=== PATIENT | male | born 1975 | race Caucasian/White ===

== ENCOUNTER → 2018-03-12 06:49 | Outpatient (CLI) | payer OTHER, SELFPAY ==
--- NOTE | 2018-03-12 | DI.MRI.S_ITS ---
PROCEDURE: MR WRIST RT WO/W CON INDICATIONS: SPRAIN OF CARPAL JOINT OF RIGHT WRIST TECHNIQUE: Noncontrast coronal proton density fast spin echo and T2 fast spin echo with fat saturation; coronal 3-D gradient echo, axial T1 spin echo and T2 fast spin echo with fat saturation, axial T1 spin echo with fat saturation, sagittal T1 spin echo through the wrist. Post-contrast axial, coronal, and sagittal T1 spin echo with fat saturation through the wrist. COMPARISON: None. FINDINGS: Image quality: Excellent. Bones and cartilage: No suspicious osseous enhancement. The carpal bones are normally aligned. No bone marrow contusions or fractures. No evidence for avascular necrosis. Overlying cartilage surfaces appear preserved. Carpal ligaments: The scapholunate and lunotriquetral ligaments appear thickened with intermediate signal consistent with sequelae of a moderate sprain or chronic degeneration. The lunotriquetral ligament appears intact. In the absence of intra-articular contrast, the extrinsic carpal ligaments are not well identified. On sagittal images, the pisohamate ligament appears intact. Triangular fibrocartilage complex: The triangular fibrocartilage appears intact. The adjacent meniscal homolog appears normal in the absence of intra-articular contrast. The extensor carpi ulnaris tendon is normal in location and morphology. Tendons and soft tissues: No suspicious soft tissue enhancement. The carpal tunnel structures appear normal, including the median nerve. The ulnar nerve appears normal within Guyon's canal. All six extensor tendon compartments demonstrate normal morphology, without pathologic tendon sheath fluid. There is a small thin-walled cysts dorsal to the carpus between the lunate and scaphoid measure up to approximately 0.8 x 0.4 x 0.2 cm without enhancement following contrast administration. Findings are compatible with a small ganglion cyst. There is mild adjacent soft tissue edema. IMPRESSION: 1. Small ganglion cyst dorsal to the carpus between the scaphoid and lunate. 2. Sequelae of a moderate sprain or degeneration of the scapholunate ligament. Dictated by: Edmund Mckeon M.D. on 03/12/2018 at 9:31 Approved by: Edmund Mckeon M.D. on 03/12/2018 at 9:40
== END ==
PROVIDERS: PCP Radiology Diagnostic Radiology; Visit Provider Orthopaedic Surgery
DX: S63.511A Sprain of carpal joint of right wrist, initial encounter (principal); M67.431 Ganglion, right wrist
CPT/HCPCS: 73223; A9579

== ENCOUNTER → 2018-07-03 14:21 | Oncology outpatient (ONC) | payer OTHER, SELFPAY ==
--- NOTE | 2018-07-03 15:00 | ONC.MSW ---
Description: New Pt Intro Activity: Met with pt to briefly introduce myself as the [employer]., offer services card, and establish initial rapport. Pt is establishing care here with Dr. 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 He has been in surveillance with no evidence of recurrance since that time. Pt indicates no immediate needs, and understands that he can call me in the future should he have any need for assistance at that time.
--- NOTE | 2018-07-03 15:01 | ONC.CONS ---
History of Present Illness - Data of Consult Patient: new to practice Consult date: 07/03/18 Requesting Physician: Samir Barton Primary Care Provider: Samir Barton - Consult Narrative Reason for consult: Left thigh myxoid liposarcoma Narrative: Kenny Isaacs is a 43 year old male. He noticed a mass on his left anterior upper thigh in September 2004 while in [place]. It was originally thought that these mass represented a lipoma. The mass persisted and the patient was seen in [facility] ED in January of 2005. The mass measured 4.8 x 2.3 x 1.3 cm per ultrasound. In January of 2005 MRI showed the mass to be 5 cm and greatest dimension. The mass was was exercised 03/08/2005. 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 He he underwent re-excision on 03/21/2005 due to positive margins. The specimen was sent to outside pathologist and read as a positive lateral margin with multiple foci of low-grade myxoid liposarcoma. Therefore he underwent third resection on 04/20/2005, which was entirely negative for malignancy. He had adjuvant 66 Gy EBRT to the excision site completed on 07/14/2005. Thereafter patient has been on active surveillance without evidence of disease recurrence or metastasis. CC: Renee Thompson MD Patient reports pain?: No Home Medications and Allergies Allergies Allergy/AdvReac Type Severity Reaction Status Date / Time No Known Drug Allergies Allergy Verified 07/03/18 15:09 Medical History - Social History Smoking Status: Never smoker Substance Use Type: does not use Alcohol Intake: never Review of Systems All systems PM: reviewed and no additional remarkable complaints except as stated Exam Vital signs: Last Vital Signs Temp 98.1 F 07/03/18 15:07 Pulse 67 07/03/18 15:07 Resp 16 07/03/18 15:07 BP 138/85 07/03/18 15:07 Pulse Ox 98 07/03/18 15:07 ECOG 1 Narrative: Gen: WDWN, NAD, pleasant and cooperative. HEENT: NCAT, EOMI, PERRLA, anicteric sclera. Neck: Supple, No palpable thyromegaly or lymphadenopathy. Respiratory: CTAB, no wheezes audible. No JVD Cardiovascular: RRR, S1 and S2 normal, no M/G/R. Abdomen: Soft, NTND, BS normal, no palpable organomegaly Extremities: No LE pitting edema. Left upper thigh surgical wound noted. Lymphatic: no palpable lymph nodes in the neck, axillae, or groins. Neurological: AOx3, CN II-XII grossly intact. No focal motor or sensory deficit. Psychiatric: Good judgment and insight; normal affect; normal thought process; cooperative, no depression, no anxiety. Results - Labs None for review today Assessment and Plan (1) Liposarcoma of left thigh 43-year-old male with remote history of left thigh myxoid liposarcoma diagnosed 2004. He underwent four surgical resection procedures to achieve negative margins followed by adjuvant radiotherapy completed in 07/2005. Patient presents here today for scheduled annual follow-up visit. Clinically patient reports no new signs or symptoms. I talked with the patient that I will obtain routine chest x-ray two views and left lower leg MRI for evaluation. We will see the patient in a month. Afterwards I will schedule once a year follow-up visit. Plan: 1. CBC, CMP, LDH 2. MRI left leg 3. CXR 2V 4. RTC in 2 weeks
[2018-07-03 15:07] VITALS: BP 138/85; PULSE 67; RESP 16; TEMP 36.7; O2SAT 98
--- NOTE | 2018-07-03 15:10 | P.CONONC_ITS ---
History of Present Illness - Data of Consult Patient: new to practice Consult date: 07/03/18 Requesting Physician: Samir Barton Primary Care Provider: Samir Barton - Consult Narrative Reason for consult: Left thigh myxoid liposarcoma Narrative: Kenny Isaacs is a 43 year old male. He noticed a mass on his left anterior upper thigh in September 2004 while in [place]. It was originally thought that these mass represented a lipoma. The mass persisted and the patient was seen in [facility] in January of 2005. The mass measured 4.8 x 2.3 x 1.3 cm per ultrasound. In January of 2005 MRI showed the mass to be 5 cm and greatest dimension. The mass was was exercised 03/08/2005. 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 He he underwent re- excision on 03/21/2005 due to positive margins. The specimen was sent to outside pathologist and read as a positive lateral margin with multiple foci of low- grade myxoid liposarcoma. Therefore he underwent third resection on 04/20/2005, which was entirely negative for malignancy. He had adjuvant 66 Gy EBRT to the excision site completed on 07/14/2005. Thereafter patient has been on active surveillance without evidence of disease recurrence or metastasis. CC: Renee Thompson MD Patient reports pain?: No Home Medications and Allergies Allergies Allergy/AdvReac Type Severity Reaction Status Date / Time No Known Drug Allergies Allergy Verified 07/03/18 15:09 Medical History - Social History Smoking Status: Never smoker Substance Use Type: does not use Alcohol Intake: never Review of Systems All systems PM: reviewed and no additional remarkable complaints except as stated Exam Vital signs: Last Vital Signs Temp 98.1 F 07/03/18 15:07 Pulse 67 07/03/18 15:07 Resp 16 07/03/18 15:07 BP 138/85 07/03/18 15:07 Pulse Ox 98 07/03/18 15:07 ECOG 1 Narrative: Gen: WDWN, NAD, pleasant and cooperative. HEENT: NCAT, EOMI, PERRLA, anicteric sclera. Neck: Supple, No palpable thyromegaly or lymphadenopathy. Respiratory: CTAB, no wheezes audible. No JVD Cardiovascular: RRR, S1 and S2 normal, no M/G/R. Abdomen: Soft, NTND, BS normal, no palpable organomegaly Extremities: No LE pitting edema. Left upper thigh surgical wound noted. Lymphatic: no palpable lymph nodes in the neck, axillae, or groins. Neurological: AOx3, CN II-XII grossly intact. No focal motor or sensory deficit. Psychiatric: Good judgment and insight; normal affect; normal thought process; cooperative, no depression, no anxiety. Results - Labs None for review today Assessment and Plan (1) Liposarcoma of left thigh 43-year-old male with remote history of left thigh myxoid liposarcoma diagnosed 2004. He underwent four surgical resection procedures to achieve negative margins followed by adjuvant radiotherapy completed in 07/2005. Patient presents here today for scheduled annual follow-up visit. Clinically patient reports no new signs or symptoms. I talked with the patient that I will obtain routine chest x-ray two views and left lower leg MRI for evaluation. We will see the patient in a month. Afterwards I will schedule once a year follow-up visit. Plan: 1. CBC, CMP, LDH 2. MRI left leg 3. CXR 2V 4. RTC in 2 weeks
== END ==
PROVIDERS: PCP Radiology Diagnostic Radiology; Visit Provider Internal Medicine Hematology & Oncology
DX: Z08 Encounter for follow-up examination after completed treatment for malignant neoplasm (principal); Z85.828 Personal history of other malignant neoplasm of skin
CPT/HCPCS: 99205; 99215